=== PATIENT | male | born 2000 | race Caucasian/White ===

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

== ENCOUNTER 2024-01-06 07:08 | Emergency (ER) | payer BC, MEDICAID ==
[2024-01-06 07:26] VITALS: BP 119/77; PULSE 62; RESP 18; TEMP 97.4; O2SAT 100
--- NOTE | 2024-01-06 07:29 | ERPHSYRPT ---
- History of Present Illness Time Seen by Provider: 01/06/24 07:28 Source: patient, family Exam Limitations: no limitations Patient Subjective Stated Complaint: earache right side Triage Nursing Assessment: Patient ambulated back to ED and transferred self to bed. Patient A+O X3. Patient's skin pink, warm and dry. Patient complains of waking up around 0600 with right sided earache 6/10. Right ear noted to have wax and redness noted. Physician History: This is a 23-year-old white male patient of Dr. Santos who woke up this morning with significant right ear pain. Patient is allergic to methylprednisolone. He describes the allergic reaction as hallucinations. Patient has no other medication allergies and is not taking any medications at this time. Timing/Duration: abrupt onset Severity: moderate ENT Location: ear (R) Prearrival Treatment: no prearrival treatment Modifying Factors: Improves With: nothing Associated Symptoms: ear pain (R) Allergies/Adverse Reactions: methylprednisolone [From Medrol] Adverse Reaction (Mild, Verified 01/06/24 07:19) Hx Tetanus, Diphtheria Vaccination/Date Given: Yes Hx Influenza Vaccination/Date Given: No Hx Pneumococcal Vaccination/Date Given: No Travel Risk - International Travel Have you traveled outside of the country in past 3 weeks: No - Emerging Infectious Disease Are you exhibiting symptoms associated with any current EIDs: No - Review of Systems Constitutional: No Symptoms Eyes: No Symptoms Ears, Nose, & Throat: Ear Pain (Right side) Respiratory: No Symptoms Cardiac: No Symptoms Abdominal/Gastrointestinal: No Symptoms Genitourinary Symptoms: No Symptoms Musculoskeletal: No Symptoms Skin: No Symptoms Neurological: No Symptoms Psychological: No Symptoms Endocrine: No Symptoms Hematologic/Lymphatic: No Symptoms Immunological/Allergic: No Symptoms All Other Systems: Reviewed and Negative - Past Medical History Pertinent Past Medical History: Yes Neurological History: No Pertinent History ENT History: No Pertinent History Cardiac History: No Pertinent History Respiratory History: No Pertinent History Endocrine Medical History: No Pertinent History Musculoskeletal History: Fractures GI Medical History: No Pertinent History, Other History: No Pertinent History, Other Psycho-Social History: Other Male Reproductive Disorders: No Pertinent History Other Medical History: NO PREVIOUS MUSCULOSKELETRAL INJURY OR SURGICAL HX - Past Surgical History Past Surgical History: No Neuro Surgical History: No Pertinent History Cardiac: No Pertinent History Respiratory: No Pertinent History Gastrointestinal: No Pertinent History Genitourinary: No Pertinent History Musculoskeletal: No Pertinent History Male Surgical History: No Pertinent History - Social History Smoking Status: Never smoker Exposure to second hand smoke: No Drug Use: none Patient Lives Alone: No - Nursing Vital Signs Nursing Vital Signs: Initial Vital Signs Temperature 97.4 F 01/06/24 07:20 Pulse Rate 62 01/06/24 07:20 Respiratory Rate 18 01/06/24 07:20 Blood Pressure 119/77 01/06/24 07:20 O2 Sat by Pulse Oximetry 100 01/06/24 07:20 Pain Scale Pain Intensity 6 - Physical Exam General Appearance: no apparent distress, alert, anxiety Eye Exam: bilateral eye: normal inspection, PERRL, EOMI Ear Exam: right ear: erythema, swelling, tenderness, TM dull, left ear: canal normal, TM normal, bilateral ear: auricle normal Nasal Exam: normal inspection Throat Exam: normal, pharynx normal Neck Exam: normal inspection, non-tender, supple, full range of motion Cardiovascular/Respiratory Exam: chest non-tender, no respiratory distress Abdominal Exam: non-tender Neurologic Exam: alert, oriented x 3, cooperative, 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, normal mood/affect, nml cerebellar function, nml station & gait, sensation nml Skin Exam: normal color, warm, dry SpO2 Interpretation: normal SpO2: 100 O2 Delivery: Room Air - Course Nursing assessment & vital signs reviewed: Yes Ordered Tests: Medication Summary Discontinued Medications Generic Name Dose Route Start Last Admin Trade Name Freq PRN Reason Stop Dose Admin Ceftriaxone Sodium 1,000 mg 01/06/24 07:31 01/06/24 07:41 Ceftriaxone Sodium 1000 Mg Inj Vial IM 01/06/24 07:32 1,000 mg STAT ONE Administration Ceftriaxone Sodium Confirm 01/06/24 07:40 Ceftriaxone Sodium 1000 Mg Inj Vial Administered 01/06/24 07:41 Dose 1,000 mg .ROUTE .STK-MED ONE Ibuprofen 600 mg 01/06/24 07:32 01/06/24 07:40 Ibuprofen 600 Mg Tablet PO 01/06/24 07:33 600 mg STAT ONE Administration Ibuprofen Confirm 01/06/24 07:40 Ibuprofen 600 Mg Tablet Administered 01/06/24 07:41 Dose 600 mg .ROUTE .STK-MED ONE Lidocaine HCl Confirm 01/06/24 07:40 Lidocaine Hcl 1% 20 Ml Mdv 20 Ml Ml Administered 01/06/24 07:41 Dose 3 ml .ROUTE .STK-MED ONE - Progress Progress: unchanged, pain not gone completely, re-examined Progress Note: 01/06/24 07:47 My medical decision making and the assignment of low complexity this patient's medical issue today is based on review the patient's past medical history, review of patient's medication list, review of patient drug allergy list, history present illness and physical findings on examination. This patient's medical workup does not require laboratory or radiographic studies. Differential diagnosis includes otitis media, otitis externa, perforated tympanic membrane on the right side. Counseled pt/family regarding: diagnosis, need for follow-up Medical Desision Making - Independent Historian Additional History obtained from: Mother - Diagnostic Testing Diagnostic test were ordered, analyzed, and reviewed by me: No - Risk of complications The pt has a mod risk of morbidity or mortality based on: Need for prescription drug management - Departure Departure Disposition: Home Clinical Impression: Right otitis media Condition: Stable Critical Care Time: No Referrals: ARCADIO SANTOS MD [Primary Care Provider] - Follow up/PCP as directed Additional Instructions: Take your antibiotics as prescribed. Use Tylenol 650 mg every 6-8 hours as needed for pain control. In addition, add ibuprofen 600 mg every 6 hours with food. Both for at least 5 days. Call your primary care provider on 01/07/2024, to arrange a follow-up appointment in the next 5 to 7 days. Prescriptions: Amoxicillin 500 mg Cap [Amoxil 500 mg] 1,000 mg PO TID #42 cap
[2024-01-06] MEDS: MOTRIN 600 MG PO ONE (07:40)
[2024-01-06] MEDS ORDERED: MOTRIN 600 MG ONE (07:40)
[2024-01-06] MEDS ORDERED: Rocephin 1000 MG INJ ONE (07:40)
[2024-01-06] MEDS ORDERED: XYLOCAINE 1% HCL 20 ML MDV ONE (07:40)
[2024-01-06] MEDS: Rocephin 1000 MG INJ IM ONE (07:41)
== END 2024-01-06 08:07 | disposition home or self-care (01) ==
LOC: ED 07:08
DX: H66.91 Otitis media, unspecified, right ear (principal); H92.01 Otalgia, right ear
CPT/HCPCS: 96372; 99283; J0696; A9270-GY